=== PATIENT | male | born 1995 | race Caucasian/White ===

== ENCOUNTER 2017-04-09 11:33 | Emergency (ER) | payer OTHER ==
[~2017-04-09] VITALS: Ht 170.2 cm; Wt 65.0 kg
[2017-04-09 11:35] VITALS: BP 146/89; PULSE 113; RESP 18; TEMP 98.9; O2SAT 97
--- NOTE | 2017-04-09 12:10 | PD ---
HPI Chief Complaint: ENT Complaint Time Seen by Provider: 11:50 Travel History International Travel<30 days: No Contact w/Intl Traveler<30days: No Traveled to known affect area: No History of Present Illness HPI 21-year-old active male presents to the emergency department with history of sore throat 1 week. Patient was previously treated with azithromycin, but symptoms worsened more on the left than the right. He was tested for mono which was negative as well as strep which was positive. He is here for further evaluation and treatment. Significant fever at this time. Patient has moderate discomfort, and mild difficulty swallowing. His voice is normal. He has no other significant complaints. Patient is allergic to amoxicillin as well as Augmentin. PFSH Past Medical History Medical History: Denies Significant Hx Diminished Hearing: No Tetanus Vaccination: > 5 Years Influenza Vaccination: No Past Surgical History Surgical History: No Previous Surgery Social History Alcohol Use: Yes (RARE) Tobacco Use: No Substance Use: No Allergies-Medications (Allergen,Severity, Reaction): Coded Allergies: amoxicillin (Verified Allergy, Mild, rash, 04/09/17) clavulanic acid (Verified Allergy, Mild, rash, 04/09/17) Reported Meds & Prescriptions Reported Meds & Active Scripts Active Prednisone 20 Mg Tab 20 Mg PO BID 5 Days Cleocin (Clindamycin HCl) 150 Mg Cap 300 Mg PO Q6H 10 Days Review of Systems Except as stated in HPI: all other systems reviewed are Neg General / Constitutional: No: Fever, Chills Eyes: No: Visual changes HENT: Positive: Sore Throat, Masses, No: Headaches, Vertigo, Lightheadedness, Rhinitis, Rhinorrhea, Congestion, Nosebleed, Neck Stiffness, Neck Pain, Gingival Bleeding, Dental Difficulties, Ear Discharge, Earache Cardiovascular: No: Chest Pain or Discomfort Respiratory: No: Cough, Shortness of Breath, Wheezing Gastrointestinal: No: Nausea, Vomiting, Diarrhea, Abdominal Pain Genitourinary: No: Dysuria Musculoskeletal: No: Pain Skin: No Rash Neurologic: No: Weakness Psychiatric: No: Depression Endocrine: No: Polydipsia Hematologic/Lymphatic: No: Easy Bruising Physical Exam Narrative GENERAL: Patient appears in no acute distress. SKIN: Warm and dry. Normal color. Normal turgor. HEAD: Atraumatic. Normocephalic. EYES: Pupils equal and round. No scleral icterus. No injection or drainage. ENT: No nasal bleeding or discharge. Mucous membranes pink and moist. TMs are clear bilaterally. Patient has a few red appearing tonsils with small apparent tonsillar abscess noted on the left side. Uvula is midline. Posterior pharynx is clear. Airway is patent. Patient is able to swallow his own spit as well as liquids. NECK: Trachea midline. Supple with mild to moderate lymphadenopathy on the left anterior cervical chain. CARDIOVASCULAR: Regular rate and rhythm. RESPIRATORY: No accessory muscle use. Clear to auscultation. Breath sounds equal bilaterally. GASTROINTESTINAL: Abdomen soft, non-tender, nondistended. Hepatic and splenic margins not palpable. MUSCULOSKELETAL: Extremities without clubbing, cyanosis, or edema. No obvious deformities. NEUROLOGICAL: Awake and alert. No obvious cranial nerve deficits. Motor grossly within normal limits. Five out of 5 muscle strength in the arms and legs. Normal speech. PSYCHIATRIC: Appropriate mood and affect; insight and judgment normal. Data Data Last Documented VS Vital Signs Date Time Temp Pulse Resp B/P (MAP) Pulse Ox O2 Delivery O2 Flow Rate FiO2 04/09/17 11:45 17 04/09/17 11:35 98.9 113 146/89 (108) 97 Orders Orders Clindamycin Inj (Cleocin Inj) (04/09/17 12:30) Prednisone (Deltasone) (04/09/17 12:30) [facility] Medical Decision Making Medical Screen Exam Complete: Yes Emergency Medical Condition: Yes Differential Diagnosis Strep pharyngitis peritonsillar abscess. Sore throat. Narrative Course Patient appears medically stable at time of exam. Vital signs are stable and airway is intact at this time. Patient is given 900 mg clindamycin IM as well as 60 mg prednisone by mouth. Patient is felt stable for discharge, with oral Cleocin 300 mg 4 times a day 10 days. Patient is maintained on prednisone 20 mg twice a day 5 days. Patient is to use Tylenol and ice chips for discomfort. Patient is warned, if his symptoms worsen especially swelling in the throat he should be seen again right away. Patient should otherwise follow up as needed. Diagnosis Primary Impression: Peritonsillar abscess Referrals: Primary Care Physician Patient Instructions: General Instructions, Peritonsillar Abscess (ED) Additional Instructions: Patient is given 900 mg clindamycin IM as well as 60 mg prednisone by mouth. Patient is felt stable for discharge, with oral Cleocin 300 mg 4 times a day 10 days. Patient is maintained on prednisone 20 mg twice a day 5 days. Patient is to use Tylenol and ice chips for discomfort. Patient is warned, if his symptoms worsen especially swelling in the throat he should be seen again right away. Patient should otherwise follow up as needed. Med/Other Pt SpecificInfo: Prescription(s) given Scripts Prednisone (Prednisone) 20 Mg Tab 20 MG PO BID for 5 Days, #10 TAB 0 Refills Prov: Cindy Bird DO 04/09/17 Clindamycin (Cleocin) 150 Mg Cap 300 MG PO Q6H for Infection for 10 Days, #80 CAP 0 Refills Prov: Cindy Bird DO 04/09/17 Disposition: 01 DISCHARGE HOME Condition: Stable Adam Norwood Apr 09, 2017 12:10
[2017-04-09] MEDS ORDERED: predniSONE 20 MG TAB PO ONE (12:30)
[2017-04-09] MEDS ORDERED: CLINDAMYCIN PHOS 900 MG/6 ML VIAL IM ONE (12:30)
[2017-04-09] MEDS ORDERED: CLIN150 PO (12:34)
[2017-04-09] MEDS ORDERED: PRED20 PO (12:34)
[2017-04-09 12:48] VITALS: BP 109/77; TEMP 97.9
== END 2017-04-09 12:48 | disposition home or self-care (01) ==
LOC: NEPD 11:33
DX: J36 Peritonsillar abscess (principal); Z88.0 Allergy status to penicillin; Z88.8 Allergy status to other drugs, medicaments and biological substances
CPT/HCPCS: 96372; 99284; J7512